=== PATIENT | male | born 1975 | race Caucasian/White ===

== ENCOUNTER 2019-07-07 07:55 | Emergency (ER) | payer OTHER ==
[~2019-07-07] VITALS: Ht 175.3 cm; Wt 71.0 kg
--- NOTE | 2019-07-07 08:32 | NUR ---
[facility]
--- NOTE | 2019-07-07 08:54 | NUR ---
ER PA AT BEDSIDE. PT W/ C/O INTERMITTANT ABD CRAMPING WITH SUDDEN ONSET LAST ONLY FEW MIN. NO N/V NO RPT OF CHANGE IN BOWEL OR BLADDER. PT ASSESSMENT REV. AND POC DISCUSSED, QUESTIONS ANSWERED. PT DENIES ANY PAIN AT THIS TIME. PT OOB AND AMB TO BATHROOM INSTRUCTED ON COLLECTION OF CLEAN CATCH URINE SAMPLE.
[2019-07-07 08:57] VITALS: BP 124/79
[2019-07-07 09:23] LABS: BASOPHILS # (AUTO) 0.02 x10^3/uL (0-0.1); BASOPHILS % (AUTO) 0 % (0-1); EOSINOPHILS # (AUTO) 0.09 x10^3/uL (0-0.4); EOSINOPHILS % (AUTO) 2 % (1-7); LYMPHOCYTES # (AUTO) 1.26 x10^3/uL (1-3.4); LYMPHOCYTES % (AUTO) 20 % (22-44); MD NO; MEAN CORPUSCULAR HGB CONC 34.3 g/dL (33.2-36.2); MEAN CORPUSCULAR VOLUME 90.3 fL (81-97); MEAN PLATELET VOLUME 7.5 fL (7.4-10.4); MONOCYTES # (AUTO) 0.44 x10^3/uL (0.2-0.8); MONOCYTES % (AUTO) 7 % (2-9); NEUTROPHILS # (AUTO) 4.41 x10^3/uL (1.8-6.8); NEUTROPHILS % (AUTO) 71 % (42-75); PLATELET COUNT 286 x10^3/uL (130-400); RED BLOOD COUNT 5.45 x10^6/uL (4.38-5.82)
[2019-07-07 09:28] LABS: ALANINE AMINOTRANSFERASE 28 U/L (12-78); ALBUMIN 4.2 g/dL (3.4-5.0); ANION GAP 4 mmol/L (5-15); CALCIUM 9.3 mg/dL (8.5-10.1); CHLORIDE 105 mmol/L (98-107); CREATININE 0.88 mg/dL (0.7-1.3)
[2019-07-07 09:31] LABS: ALKALINE PHOSPHATASE 54 U/L (45-117); BILIRUBIN,TOTAL 0.7 mg/dL (0.2-1.0); TOTAL PROTEIN 7.8 g/dL (6.4-8.2)
[2019-07-07 09:35] LABS: CULTURE INDICATED? NO; MICROSCOPIC NOT IND
== END 2019-07-07 11:19 | disposition home or self-care (01) ==
LOC: ED 10:46
DX: K29.00 Acute gastritis without bleeding (principal); Z72.89 Other problems related to lifestyle
CPT/HCPCS: 36415; 74176; 80053; 81003; 83690; 85025; 99284

== ENCOUNTER 2020-11-21 22:22 | Inpatient (IN) | payer OTHER ==
[~2020-11-21] VITALS: Ht 177.8 cm; Wt 74.0 kg
--- NOTE | 2020-11-21 23:39 | NUR ---
task rn: vs updated. no distress noted.
--- NOTE | 2020-11-22 00:22 | NUR ---
Aryan from endo contacted and states he will come in to ED for endoscopy
--- NOTE | 2020-11-22 00:33 | NUR ---
PATIENT MOVED TO TRAUMA 2. REPORT TO VINCE TYOSN
--- NOTE | 2020-11-22 00:45 | NUR ---
Patient prepped for procedural sedation. IV established.
--- NOTE | 2020-11-22 00:50 | NUR ---
received report from JAH FRY. Endo team and ERP at bedside.
[2020-11-22] MEDS ORDERED: PROPOFOL 10 MG/ML, 20ML ONE ×2 (01:02→01:03)
[2020-11-22] MEDS: PROPOFOL 10 MG/ML, 20ML IVPush ONE ×2 (01:05→01:12)
--- NOTE | 2020-11-22 01:12 | NUR ---
corrrection from previous charting. 0112 procedure started.
--- NOTE | 2020-11-22 01:26 | NUR ---
procedure ended. unable to retrieve airpod. plan of care :patient for admit.
--- NOTE | 2020-11-22 01:52 | NUR ---
bed assigned. report to JAH Green.
[2020-11-22] MEDS ORDERED: DOCUSATE 100 MG CAPSULE PO PRN (02:00)
[2020-11-22] MEDS ORDERED: ONDANSETRON 2MG/ML, 2ML IVPush PRN (02:00)
[2020-11-22] MEDS ORDERED: hydrALAzine 20 MG/ML, 1ML IVPush PRN (02:00)
[2020-11-22] MEDS: SODIUM CHLORIDE 0.9% 1,000 ML IV SCH ×2 (02:00→11:11)
[2020-11-22] MEDS ORDERED: ONDANSETRON ODT 4 MG PO PRN (02:00)
[2020-11-22] MEDS ORDERED: PROMETHAZINE 25 MG/ML, 1ML IM PRN (02:00)
[2020-11-22 02:21] VITALS: BP 134/82
[2020-11-22] MEDS: ACETAMINOPHEN 325 MG TABLET PO PRN ×2 (02:59→08:35)
[2020-11-22 06:33] LABS: ALANINE AMINOTRANSFERASE 24 U/L (12-78); ALBUMIN 3.8 g/dL (3.4-5.0); ANION GAP 6 mmol/L (5-15); BASOPHILS % (AUTO) 0 % (0-1); CALCIUM 8.5 mg/dL (8.5-10.1); CHLORIDE 107 mmol/L (98-107); CREATININE 0.77 mg/dL (0.7-1.3); EOSINOPHILS % (AUTO) 1 % (1-7); LYMPHOCYTES % (AUTO) 6 % (22-44); MEAN CORPUSCULAR HGB CONC 34.3 g/dL (33.2-36.2); MEAN PLATELET VOLUME 7.7 fL (7.4-10.4); MONOCYTES % (AUTO) 6 % (2-9); NEUTROPHILS % (AUTO) 87 % (42-75); PLATELET COUNT 226 x10^3/uL (130-400); RED BLOOD COUNT 5.01 x10^6/uL (4.38-5.82)
[2020-11-22 06:34] LABS: MD NO
[2020-11-22 06:35] LABS: ALKALINE PHOSPHATASE 47 U/L (45-117); BILIRUBIN,TOTAL 0.8 mg/dL (0.2-1.0)
[2020-11-22 07:20] VITALS: BP 116/69
[2020-11-22] MEDS ORDERED: OMNIPAQUE 350 MG/ML, 100ML BOTTLE ONE (09:27)
[2020-11-22 12:16] VITALS: BP 132/73
== END 2020-11-22 12:40 | disposition home or self-care (01) | DRG 395 ==
LOC: ED 22:36 → EDIP 11-22 01:37 → 4NE 11-22 02:15
PROVIDERS: ADMIT Internal Medicine; ATTEND Family Medicine
PROC: 0DJ08ZZ Inspection of Upper Intestinal Tract, Via Natural or Artificial Opening Endoscopic (ICD-10-PCS; principal; 2020-11-22 00:45)
DX: T18.3XXA Foreign body in small intestine, initial encounter (principal); K59.00 Constipation, unspecified; K29.70 Gastritis, unspecified, without bleeding; M54.9 Dorsalgia, unspecified; G89.29 Other chronic pain
CPT/HCPCS: 36415; 74021; 74177; 80053; 83735; 85025; 99285; G0378; J2704; Q9967; J7030